=== PATIENT | male | born 1965 | race Caucasian/White ===

== ENCOUNTER 2021-03-04 03:42 | Inpatient (IN) | payer OTHER ==
[~2021-03-04] VITALS: Ht 175.3 cm; Wt 94.3 kg
[2021-03-04 06:54] LABS: BASOPHILS # (AUTO) 0.1 (0.0-0.1); BASOPHILS % 0.5 % (0.0-1.0); EOSINOPHILS # (AUTO) 0.1 (0.0-0.4); EOSINOPHILS % 1.1 % (0.0-6.0); HEMATOCRIT 43.3 % (38.2-49.6); HEMOGLOBIN 14.2 g/dL (14.0-18.0); LYMPHOCYTES # (AUTO) 2.1 (1.0-3.2); LYMPHOCYTES % 23.1 % (18.0-39.1); MEAN CORPUSCULAR HEMOGLOBIN 29.3 pg (28-32); MEAN CORPUSCULAR HGB CONC 32.8 g/dL (31-35); MEAN CORPUSCULAR VOLUME 89.5 fL (81-99); MONOCYTES # (AUTO) 0.9 (0.2-0.8); PLATELET COUNT 250 x10e3/uL (140-360); RED BLOOD COUNT 4.84 x10e6/uL (4.3-5.7); RED CELL DISTRIBUTION WIDTH 13.1 % (11.7-14.4)
[2021-03-04] MEDS ORDERED: LIPITOR20 MG PO (07:03)
[2021-03-04] MEDS ORDERED: TRIAMTERENE-HC1 EAC2 PO (07:03)
[2021-03-04] MEDS ORDERED: ASPIRIN81 MG PO (07:03)
[2021-03-04] MEDS ORDERED: METOPROLOL SUCC50 MG PO (07:03)
[2021-03-04] MEDS ORDERED: LEVOTHYROXINE50 MCG PO (07:03)
[2021-03-04] MEDS ORDERED: AMLODIPINE BESY10 MG PO (07:03)
[2021-03-04 07:14] LABS: ALBUMIN 3.9 g/dL (3.5-5.0); ALBUMIN/GLOBULIN RATIO 1.1 (0.8-2.0); ANION GAP 16.2 mmol/L (8-16); CALCIUM 8.7 mg/dL (8.4-10.2); CREATININE, SERUM 1.44 mg/dL (0.72-1.25); POTASSIUM 3.2 mmol/L (3.5-5.1)
[2021-03-04 08:00] VITALS: BP 129/83
[2021-03-04 08:34] VITALS: BP 129/83
[2021-03-04] MEDS ORDERED: Morphine 4mg Syringe 4 MG/ML INJ IV PRN (08:45)
[2021-03-04 12:00] VITALS: BP 119/84
[2021-03-04] MEDS ORDERED: Vancomycin IV 500 MG in SODIUM CHLORIDE 0.9% 100 ML IV SCH (13:00)
[2021-03-04] MEDS ORDERED: Vancomycin IV 1 GM in SODIUM CHLORIDE 0.9% 250ML 250 ML IV SCH (13:00)
[2021-03-04] MEDS ORDERED: PROPOFOL IV EMULSION 10 MG/ML 20 ML VIAL ONE (13:14)
[2021-03-04] MEDS ORDERED: SEVOFLURANE INHAL SOLN 250 ML PEN BTL ONE (13:14)
[2021-03-04] MEDS ORDERED: KETOROLAC TROMETHAMINE 30 MG/ML VIAL ONE (13:14)
[2021-03-04] MEDS ORDERED: LIDOCAINE HCL 2% LOCAL INJ 5 ML SDV VIAL INJ ONE (13:14)
[2021-03-04] MEDS ORDERED: DEXAMETHASONE SOD PHOS INJ 4 MG/ML SDV ONE (13:14)
[2021-03-04] MEDS ORDERED: METOCLOPRAMIDE HCL 10 MG/2ML VIAL ONE (13:14)
[2021-03-04] MEDS ORDERED: ONDANSETRON HCL INJ 2MG/ML 2ML 2 MG/ML VIAL ONE (13:14)
[2021-03-04] MEDS ORDERED: POVIDONE IODINE 0.05% 0.05 % ML PO ONE (13:14)
[2021-03-04] MEDS ORDERED: BUPIVACAINE HCL 0.5% INJ 30 ML VIAL INJ ONE (13:27)
[2021-03-04] MEDS ORDERED: LIDOCAINE 1% W/EPINEPHRINE 20 ML VIAL ONE (13:27)
[2021-03-04] MEDS ORDERED: LIDOCAINE HCL 1% LOCAL INJ 20 ML VIAL ONE (13:43)
[2021-03-04] MEDS ORDERED: FENTANYL CITRATE/PF 100MCG/2 ML INJ ONE (14:13)
[2021-03-04] MEDS ORDERED: MIDAZOLAM HCL 2 MG/2 ML VIAL ONE (14:13)
[2021-03-04] MEDS ORDERED: POTASSIUM CHLORIDE 20 MEQ TAB CR PO ONE (15:00)
[2021-03-04] MEDS ORDERED: BISACODYL 5 MG TAB EC PO PRN (15:30)
[2021-03-04 16:00] VITALS: BP 128/86
[2021-03-04] MEDS ORDERED: Tylenol #3 PO (16:42)
[2021-03-04] MEDS ORDERED: ATORVASTATIN 40 MG TAB PO SCH (21:00)
[2021-03-04] MEDS ORDERED: AMLODIPINE BESYLATE 10 MG TAB PO SCH (21:00)
[2021-03-04] MEDS ORDERED: ASPIRIN 81 MG CHEW TAB PO SCH (21:00)
[2021-03-04] MEDS ORDERED: ATORVASTATIN 20 MG TAB PO SCH (21:00)
[2021-03-05] MEDS ORDERED: KEFLEX125 MG/5 M PO (01:51)
[2021-03-05] MEDS ORDERED: LEVOTHYROXINE SODIUM 50 MCG TAB PO SCH ×2 (06:00→09:00)
[2021-03-05] MEDS ORDERED: METOPROLOL SUCCINATE 50 MG TAB XL PO SCH (09:00)
== END 2021-03-04 17:59 | disposition home or self-care (01) | DRG 513 ==
LOC: MED/SURG3 04:54
PROVIDERS: ADMIT Internal Medicine; ATTEND Internal Medicine
PROC: 0JQJ0ZZ Repair Right Hand Subcutaneous Tissue and Fascia, Open Approach (ICD-10-PCS; 2021-03-04)
PROC: 0HQQXZZ Repair Finger Nail, External Approach (ICD-10-PCS; 2021-03-04)
PROC: 0HDQXZZ Extraction of Finger Nail, External Approach (ICD-10-PCS; principal; 2021-03-04 14:30)
DX: S62.632B Displaced fracture of distal phalanx of right middle finger, initial encounter for open fracture (principal); N17.9 Acute kidney failure, unspecified; W26.8XXA Contact with other sharp object(s), not elsewhere classified, initial encounter; Y93.H3 Activity, building and construction; Y92.62 Dock or shipyard as the place of occurrence of the external cause; I11.9 Hypertensive heart disease without heart failure; I25.10 Atherosclerotic heart disease of native coronary artery without angina pectoris; E78.5 Hyperlipidemia, unspecified; E03.9 Hypothyroidism, unspecified; S61.302A Unspecified open wound of right middle finger with damage to nail, initial encounter; Z20.822 Contact with and (suspected) exposure to COVID-19
CPT/HCPCS: 36415; 80053; 85025; 93005; J0690; J1100; J1885; J2001; J2250; J2270; J2405; J2765; J3010; J3370; J7050